=== PATIENT | male | born 1965 | race Caucasian/White ===

== ENCOUNTER 2024-05-17 14:35 | Emergency (ER) | payer BC ==
[~2024-05-17] VITALS: Ht 172.7 cm; Wt 86.2 kg
[2024-05-17 14:46] VITALS: TEMP 98.3
[2024-05-17] MEDS ORDERED: KETOROLAC TROMETHAMINE INJ 30 MG/ML VIAL ONE (15:03)
[2024-05-17] MEDS ORDERED: ACETAMINOPHEN ES 500 MG TABLET ONE (15:03)
[2024-05-17] MEDS: KETOROLAC TROMETHAMINE INJ 30 MG/ML VIAL IM ONE (15:14)
[2024-05-17] MEDS: ACETAMINOPHEN ES 500 MG TABLET PO ONE (15:14)
[2024-05-17] MEDS ORDERED: ACET-73 PO (15:42)
[2024-05-17] MEDS ORDERED: IBUP-1955 PO (15:42)
[2024-05-17 15:55] VITALS: BP 145/80; O2SAT 99
== END 2024-05-17 15:54 | disposition home or self-care (01) ==
LOC: ER 14:48
DX: S52.125A Nondisplaced fracture of head of left radius, initial encounter for closed fracture (principal); M25.512 Pain in left shoulder; M25.522 Pain in left elbow; F17.200 Nicotine dependence, unspecified, uncomplicated; G80.9 Cerebral palsy, unspecified; I10 Essential (primary) hypertension; W01.0XXA Fall on same level from slipping, tripping and stumbling without subsequent striking against object, initial encounter; Y93.89 Activity, other specified; Y92.89 Other specified places as the place of occurrence of the external cause; Y99.8 Other external cause status
CPT/HCPCS: 29105; 73030; 73080; 96372; 99284; J1885